=== PATIENT | female | born 1990 | race Caucasian/White ===

== ENCOUNTER → 2019-01-07 13:21 | Outpatient (CLI) | payer OTHER, SELFPAY ==
[2019-01-07 10:21] VITALS: BMI 36.0
[2019-01-09 14:44] LABS: HPV Reflexed? NOT INDICATED
== END ==
PROVIDERS: Referring Provider Nurse Practitioner Women's Health; Visit Provider Nurse Practitioner Women's Health
DX: Z12.4 Encounter for screening for malignant neoplasm of cervix (principal)
CPT/HCPCS: 87624; 88175; G0145

== ENCOUNTER → 2019-01-08 16:47 | Outpatient (CLI) | payer OTHER, SELFPAY ==
[2019-01-07 10:21] VITALS: BMI 36.0
[2019-01-08 19:20] LABS: Estradiol 46.8 pg/mL; Follicle Stimulating Hormone 6.8 mIU/mL; Prolactin 15.6 ng/mL; Thyroid Stim Hormone (TSH) 2.29 uIU/mL (0.358-3.74)
== END ==
PROVIDERS: Referring Provider Nurse Practitioner Women's Health; Visit Provider Nurse Practitioner Women's Health
DX: N97.0 Female infertility associated with anovulation (principal)
CPT/HCPCS: 36415; 82670; 83001; 84146; 84443

== ENCOUNTER → 2019-11-04 15:29 | Outpatient (CLI) | payer OTHER, SELFPAY ==
[2019-01-07 10:21] VITALS: BMI 36.0
== END ==
PROVIDERS: Referring Provider Obstetrics & Gynecology; Visit Provider Obstetrics & Gynecology
DX: O20.0 Threatened abortion (principal); Z3A.00 Weeks of gestation of pregnancy not specified
CPT/HCPCS: 36415; 84702

== ENCOUNTER → 2019-11-06 15:47 | Outpatient (CLI) | payer OTHER, SELFPAY ==
[2019-01-07 10:21] VITALS: BMI 36.0
== END ==
PROVIDERS: Referring Provider Obstetrics & Gynecology; Visit Provider Obstetrics & Gynecology
DX: O20.0 Threatened abortion (principal); Z3A.00 Weeks of gestation of pregnancy not specified
CPT/HCPCS: 36415; 84702

== ENCOUNTER → 2019-11-11 13:25 | Outpatient (CLI) | payer OTHER, SELFPAY ==
[2019-01-07 10:21] VITALS: BMI 36.0
[2019-11-08 13:29] VITALS: BMI 36.0
--- NOTE | 2019-11-11 13:25 | US_ITS ---
STUDY: FIRST TRIMESTER OBSTETRICAL ULTRASOUND REASON FOR EXAM: Female, 29 years old DATING LMP: September 05, 2019. TECHNIQUE: Transabdominal TECHNICAL QUALITY: Adequate. PRIOR ULTRASOUND: None. FINDINGS: There is visualization of a single gestational sac in a normal intrauterine position. The mean sac diameter (MSD) measures 4.28 cm, indicating an estimated gestational age (EGA) of 9 weeks, 6 days. The gestational sac shape is within normal limits. There is a visualized yolk sac. The yolk sac measures 5.3 mm. The placenta is non-visualized. There is visualization of a live embryo. The crown-rump length (CRL) measures 3.7 cm, indicating an estimated gestational age (EGA) of 10 weeks, 0 days. There is demonstrated cardiac activity with a heart rate of 160 bpm. The estimated gestation age (EGA) by LMP is 9 weeks, 4 days. The estimated date of delivery (CHUY) by LMP is June 11, 2020. The estimated gestation age (EGA) by US is 9 weeks, 6 days. The estimated date of delivery (CHUY) by US is June 09, 2020. The uterus measures 10.2 cm x 8.8 cm x 5.9 cm.. There is no demonstrated uterine fibroid. The cervix is closed. The right ovary is not visualized. The left ovary measures 4 cm x 3.3 cm x 2.3 cm. There is a 1.8 cm x 1.8 cm x 1.6 cm dominant follicle in the ovary. There is no visualized left adnexal mass or complex lesion. There is no fluid in the cul de sac. Findings suggestive of a right-sided maternal ureterocele. US/Init OB < 14Wks US IMPRESSION: Single live intrauterine gestation with a mean gestational age of 9 weeks and 6 days. Small left ovarian follicle. Findings suggestive of right-sided maternal ureterocele. Electronically Signed: Peterson Navarrete, at 14:56 EST , Service support ,
== END ==
PROVIDERS: Referring Provider Obstetrics & Gynecology; Visit Provider Obstetrics & Gynecology
DX: Z34.90 Encounter for supervision of normal pregnancy, unspecified, unspecified trimester (principal)
CPT/HCPCS: 76801

== ENCOUNTER → 2019-11-19 16:31 | Outpatient (CLI) | payer OTHER, SELFPAY ==
[2019-11-08 13:29] VITALS: BMI 36.0
--- NOTE | 2019-11-19 16:33 | US_ITS ---
STUDY: FIRST TRIMESTER OBSTETRICAL ULTRASOUND REASON FOR EXAM: Female, 29 years old. . Bleeding. LMP: 09/03/2019 TECHNIQUE: Transvaginal PRIOR ULTRASOUND: 11/11/2019 FINDINGS: There is visualization of a single gestational sac in a normal intrauterine position. There is a visualized yolk sac. There is visualization of a live embryo. The crown-rump length (CRL) measures 4.24 cm, indicating an estimated gestational age (EGA) of 11 weeks, 1 days. There is demonstrated cardiac activity with a heart rate of 182 bpm. There is a 1.3 x 1.1 cm subchorionic hemorrhage in the lower uterine segment. The uterus measures 10.1 x 8.9 x 6.6 cm. There is no demonstrated uterine fibroid. There are nabothian cysts noted in the cervix. The cervix is closed. The right ovary measures 3.1 x 2.4 x 1.5 cm. There is no right ovarian cyst. There is no visualized right adnexal mass or complex lesion. The left ovary measures 3.4 x 2.3 x 2.1 cm. There is a 1.7 x 1.6 cm cyst in the left ovary which likely represents the corpus luteum. There is no visualized left adnexal mass or complex lesion. There is no fluid in the cul de sac. US/Transvaginal w/Preg US IMPRESSION: Single live intrauterine gestation, as described above. 1.3 x 1.1 cm subchorionic hemorrhage in the lower uterine segment. Electronically Signed: Mariano Rodriguez, at 18:15 EST Tel , Service support ,
== END ==
PROVIDERS: Referring Provider Obstetrics & Gynecology; Visit Provider Obstetrics & Gynecology
DX: O20.9 Hemorrhage in early pregnancy, unspecified (principal); Z3A.00 Weeks of gestation of pregnancy not specified
CPT/HCPCS: 76817

== ENCOUNTER → 2019-11-20 17:08 | Outpatient (CLI) | payer OTHER, SELFPAY ==
[2019-11-20 15:45] VITALS: BMI 36.0
[2019-11-20 18:09] LABS: Amphetamine Urine VISTA NEGATIVE (<1000 ng/mL); Barbiturate Urine VISTA NEGATIVE (< 200 ng/mL); Benzodiazepine Urine VISTA NEGATIVE (< 200 ng/mL); Cocaine Urine VISTA NEGATIVE (< 300 ng/mL); Ecstacy Urine VISTA NEGATIVE (< 500 ng/mL); Methadone Urine VISTA NEGATIVE (< 300 ng/mL); PCP Urine VISTA NEGATIVE (< 25 ng/mL); THC Urine VISTA NEGATIVE (< 50 ng/mL); Vista UDS pH Range 6
[2019-11-20 19:10] LABS: Chlamydia Trachomatis by PCR Negative (Negative); Neisserai gonorrhoeae by PCR Negative (Negative); Probe Check PASS; Sample Adequacy Control PASS; Specimen Processing Control PASS
== END ==
PROVIDERS: Referring Provider Obstetrics & Gynecology; Visit Provider Obstetrics & Gynecology
DX: Z34.00 Encounter for supervision of normal first pregnancy, unspecified trimester (principal)
CPT/HCPCS: 80307; 87086; 87491; 87591

== ENCOUNTER → 2019-12-19 13:51 | Outpatient (CLI) | payer OTHER, SELFPAY ==
[2019-12-19 13:15] VITALS: BMI 36.0
[2019-12-19 14:46] LABS: Absolute Lymphocyte Count 1.45 X10^3/uL (0.83-4.51); Absolute Neutrophil Count 6.6 X10^3/uL (2.0-7.7); Basophil# 0.03 X10^3/uL; Basophil% 0.4 % (0-1); Eosinophil# 0.06 X10^3/uL; Eosinophils% 0.7 % (0-5); Hematocrit 37.4 % (37-47); Hemoglobin 12.5 g/dL (12.0-15.0); Lymphocyte # 1.45 X10^3/ul (4.0); Lymphocyte % 16.9 % (19-41); Mean Corp Hgb Conc 33.4 g/dL (32-36); Mean Corpuscular Hgb 29.1 pg (27.0-32.0); Mean Corpuscular Volume 87.2 fL (81-99); Mean Platelet Vol. 11.2 fl (6.2-12.0); Monocyte# 0.39 X10^3/uL; Monocyte% 4.6 % (0-10); NRBC Flagged by Analyzer 0 % (0-5); Neutrophil # 6.61 X10^3/uL (2.7-7.7); Neutrophil % 77.2 % (47-70); Platelet Count 222 K/mm3 (150-450); RBC Distribution Width CV 13.7 % (11.6-14.6); RBC Distribution Width SD 42.7 fl (35.1-43.9); Red Blood Count 4.29 M/mm3 (4.2-5.4); White Blood Count 8.6 K/mm3 (4.4-11.0)
[2019-12-20 11:01] LABS: HIV - WCH Non-Reactive (Nonreactive); Hepatitis B Surface Antigen Non-Reactive (Nonreactive); Hepatitis C Antibody Non-Reactive (Nonreactive)
[2019-12-26 01:04] LABS: Rapid Plasmin Reagin (RPR) NONREACTIVE (NONREACTIVE)
== END ==
PROVIDERS: Referring Provider Obstetrics & Gynecology; Visit Provider Obstetrics & Gynecology
DX: Z34.00 Encounter for supervision of normal first pregnancy, unspecified trimester (principal)
CPT/HCPCS: 36415; 85025; 86592; 86703; 86762; 86803; 86850; 86900; 86901; 87340

== ENCOUNTER → 2020-01-20 10:02 | Outpatient (CLI) | payer OTHER, SELFPAY ==
[2020-01-17 12:54] VITALS: BMI 36.0
[2020-01-20 11:11] LABS: Absolute Lymphocyte Count 1.32 X10^3/uL (0.83-4.51); Basophil# 0.02 X10^3/uL; Basophil% 0.3 % (0-1); Eosinophil# 0.06 X10^3/uL; Eosinophils% 0.8 % (0-5); Hematocrit 37.1 % (37-47); Hemoglobin 12.4 g/dL (12.0-15.0); Lymphocyte # 1.32 X10^3/ul (4.0); Lymphocyte % 16.9 % (19-41); Mean Corp Hgb Conc 33.4 g/dL (32-36); Mean Corpuscular Hgb 29.2 pg (27.0-32.0); Mean Corpuscular Volume 87.3 fL (81-99); Mean Platelet Vol. 11.5 fl (6.2-12.0); Monocyte# 0.32 X10^3/uL; Monocyte% 4.1 % (0-10); NRBC Flagged by Analyzer 0 % (0-5); Neutrophil # 6.04 X10^3/uL (2.7-7.7); Neutrophil % 77.5 % (47-70); Platelet Count 203 K/mm3 (150-450); RBC Distribution Width CV 13.2 % (11.6-14.6); RBC Distribution Width SD 41.2 fl (35.1-43.9); Red Blood Count 4.25 M/mm3 (4.2-5.4); White Blood Count 7.8 K/mm3 (4.4-11.0)
[2020-01-20 11:28] LABS: Glucose Challenge Gest 1H 50g 165 mg/dL (70-140)
== END ==
PROVIDERS: Referring Provider Obstetrics & Gynecology; Visit Provider Obstetrics & Gynecology
DX: O99.210 Obesity complicating pregnancy, unspecified trimester (principal); Z3A.00 Weeks of gestation of pregnancy not specified; N97.0 Female infertility associated with anovulation
CPT/HCPCS: 82950; 85025

== ENCOUNTER → 2020-01-22 09:41 | Outpatient (CLI) | payer OTHER, SELFPAY ==
[2020-01-17 12:54] VITALS: BMI 36.0
[2020-01-22 11:04] LABS: Glucose GTT-Gestation. Fasting 81 mg/dL (<105)
[2020-01-22 12:06] LABS: Glucose GTT-Gestational 1 Hr 200 mg/dL (<190)
[2020-01-22 13:14] LABS: Glucose GTT-Gestational 2 Hr 145 mg/dL (<165)
[2020-01-22 13:59] LABS: Glucose GTT-Gestational 3 Hr 134 L (<145)
== END ==
PROVIDERS: Referring Provider Obstetrics & Gynecology; Visit Provider Obstetrics & Gynecology
DX: O99.810 Abnormal glucose complicating pregnancy (principal); Z3A.00 Weeks of gestation of pregnancy not specified
CPT/HCPCS: 36415; 82951; 82952

== ENCOUNTER → 2020-03-13 12:21 | Outpatient (CLI) | payer OTHER, SELFPAY ==
[2020-02-14 09:28] VITALS: BMI 36.2
[2020-03-13 12:59] LABS: Absolute Lymphocyte Count 1.43 X10^3/uL (0.83-4.51); Absolute Neutrophil Count 5.8 X10^3/uL (2.0-7.7); Basophil# 0.02 X10^3/uL; Basophil% 0.3 % (0-1); Eosinophil# 0.06 X10^3/uL; Eosinophils% 0.8 % (0-5); Hematocrit 33.6 % (37-47); Hemoglobin 11.2 g/dL (12.0-15.0); Lymphocyte # 1.43 X10^3/ul (4.0); Lymphocyte % 18.6 % (19-41); Mean Corp Hgb Conc 33.3 g/dL (32-36); Mean Corpuscular Hgb 29.6 pg (27.0-32.0); Mean Corpuscular Volume 88.9 fL (81-99); Monocyte# 0.37 X10^3/uL; Monocyte% 4.8 % (0-10); NRBC Flagged by Analyzer 0 % (0-5); Neutrophil # 5.75 X10^3/uL (2.7-7.7); Platelet Count 166 K/mm3 (150-450); RBC Distribution Width CV 13.8 % (11.6-14.6); RBC Distribution Width SD 44.3 fl (35.1-43.9); Red Blood Count 3.78 M/mm3 (4.2-5.4); White Blood Count 7.7 K/mm3 (4.4-11.0)
[2020-03-13 13:56] LABS: Glucose Challenge Gest 1H 50g 172 mg/dL (70-140)
== END ==
PROVIDERS: Referring Provider Nurse Practitioner Women's Health; Visit Provider Nurse Practitioner Women's Health
DX: Z34.90 Encounter for supervision of normal pregnancy, unspecified, unspecified trimester (principal)
CPT/HCPCS: 36415; 82950; 85025

== ENCOUNTER → 2020-03-20 06:39 | Outpatient (CLI) | payer OTHER, SELFPAY ==
[2020-03-13 13:09] VITALS: BMI 36.2
[2020-03-20 07:40] LABS: Glucose GTT-Gestation. Fasting 85 mg/dL (<105)
[2020-03-20 09:03] LABS: Glucose GTT-Gestational 1 Hr 200 mg/dL (<190)
[2020-03-20 11:06] LABS: Glucose GTT-Gestational 2 Hr 146 mg/dL (<165)
[2020-03-20 11:09] LABS: Glucose GTT-Gestational 3 Hr 125 L (<145)
== END ==
PROVIDERS: Referring Provider Nurse Practitioner Women's Health; Visit Provider Nurse Practitioner Women's Health
DX: O99.810 Abnormal glucose complicating pregnancy (principal); Z3A.00 Weeks of gestation of pregnancy not specified
CPT/HCPCS: 36415; 82951; 82952

== ENCOUNTER → 2020-05-14 16:48 | Outpatient (CLI) | payer OTHER, SELFPAY ==
[2020-05-14 14:48] VITALS: BMI 36.2
== END ==
PROVIDERS: Referring Provider Obstetrics & Gynecology; Visit Provider Obstetrics & Gynecology
DX: Z3A.36 36 weeks gestation of pregnancy (principal)
CPT/HCPCS: 87081

== ENCOUNTER → 2020-06-10 17:58 | Outpatient (CLI) | payer OTHER, SELFPAY ==
[2020-06-10 08:09] VITALS: BMI 36.2
== END ==
PROVIDERS: Referring Provider Obstetrics & Gynecology; Visit Provider Obstetrics & Gynecology
DX: Z11.59 Encounter for screening for other viral diseases (principal)
CPT/HCPCS: 87635; 94799; U0003

== ENCOUNTER 2020-06-18 18:44 | Inpatient (IN) | payer OTHER, SELFPAY ==
[2020-06-05 13:29] VITALS: BMI 36.2
[2020-06-10 08:09] VITALS: BMI 36.2
[2020-06-18 19:10] VITALS: BMI 37.4
[2020-06-18 19:33] VITALS: BP 126/89; PULSE 105; TEMP 36.9
[2020-06-18] MEDS: Lactated Ringers 1,000 ML 50 ML IV (19:55)
[2020-06-18 20:18] LABS: Absolute Lymphocyte Count 2.19 X10^3/uL (0.83-4.51); Absolute Neutrophil Count 6.6 X10^3/uL (2.0-7.7); Basophil# 0.03 X10^3/uL; Basophil% 0.3 % (0-1); Eosinophil# 0.08 X10^3/uL; Eosinophils% 0.8 % (0-5); Hematocrit 34.2 % (37-47); Hemoglobin 11.1 g/dL (12.0-15.0); Lymphocyte # 2.19 X10^3/ul (4.0); Lymphocyte % 23.1 % (19-41); Mean Corp Hgb Conc 32.5 g/dL (32-36); Mean Corpuscular Hgb 28.9 pg (27.0-32.0); Mean Corpuscular Volume 89.1 fL (81-99); Mean Platelet Vol. 13.6 fl (6.2-12.0); Monocyte# 0.56 X10^3/uL; Monocyte% 5.9 % (0-10); NRBC Flagged by Analyzer 0 % (0-5); Neutrophil # 6.58 X10^3/uL (2.7-7.7); Neutrophil % 69.6 % (47-70); Platelet Count 152 K/mm3 (150-450); RBC Distribution Width CV 15.2 % (11.6-14.6); RBC Distribution Width SD 48.5 fl (35.1-43.9); Red Blood Count 3.84 M/mm3 (4.2-5.4); White Blood Count 9.5 K/mm3 (4.4-11.0)
[2020-06-18] MEDS: miSOPROStol 25 MCG TABLET PO (20:32)
[2020-06-18] MEDS: 0.9% Normal Saline Single 100 ML IV.SOLN. IY (20:53)
[2020-06-18 21:20] VITALS: BP 130/82; PULSE 66; TEMP 36.5
[2020-06-18 23:30] VITALS: BP 129/85; PULSE 77; TEMP 36.8
[2020-06-19] VITALS (75 sets, daily range): BP systolic 86–134; BP diastolic 52–82; PULSE 57–95; RESP 16; TEMP 36.1–37.7; O2SAT 74–100
[2020-06-19] MEDS: Lactated Ringers 500 ML 999 ML IV ×2 (00:07→06:53)
[2020-06-19] MEDS: Ondansetron 4 MG/2 ML Vial IV (00:12)
[2020-06-19] MEDS: fentaNYL-bupivacaine (epidural) 100 ML BAG EPIDURAL ×3 (01:25→11:05)
[2020-06-19] MEDS: Oxytocin 30 units/NS 500 ml 30 UNITS/500 ML IV.SOLN IV (03:25)
[2020-06-19] MEDS: Lactated Ringers 1,000 ML 200 ML IV ×2 (05:42→11:14)
--- NOTE | 2020-06-19 07:02 | PCM.HPOB.BLA ---
- Problem List (1) Abnormal glucose affecting Status: Acute Comment: 1 value elevated on 3hr. Recommend low carb/sugar diet for the remainder of the . Normal 3gtt at 28 weeks (2) Genital herpes Status: Acute Comment: No outbreak since 2017; Acyclovir starting at 36 weeks (3) Obesity affecting Status: Acute Qualifiers: Comment: nl 1 tm glucola, encouraged healthy weight gain (4) Status: Acute Qualifiers: Comment: declined ntd, genetic and carrier testing. nl anatomy. (5) Supervision of high-risk Status: Acute Comment: PRR CHUY 06/11/2020 nilda Parker EMELY Araujo History and Physical Date of Admission: 06/18/20 Intake Vital Signs 06/10/20 BMI 36.2 06/10/20 Height 5 ft 5 in 06/10/20 Weight: 222 lb 06/10/20 BMI 36.9 06/10/20 BP 112/76 Intake Visit Reasons: 40 WK OB Chief Complaint: est ob Embedded Nurse Required: No Is patient in pain?: No Allergies No Known Allergies Allergy (Verified 06/10/20 08:09) Medications multivitamin no.47-iron fum 27 mg-folate no.1 1 mg-dha 300 mg capsule 1 cap PO DAILY #30 cap 11/08/19 Rx Confirmed 06/10/20 acyclovir 400 mg tablet 400 mg PO BID #60 tab 05/14/20 Rx Confirmed 06/10/20 Last Menstral Period: 09/05/19 Zika: Zika virus screening: Negative : No PFSH PFSH Medical History Anxiety (Acute) Family History Grandfather Cancer skin Social History (Updated 06/10/20 @ 08:[address] 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 OB Visit CHUY Calculator Estimated Delivery Date Method Current WG Current Estimate 06/11/20 LMP (Uncertain) 39w 6d Expected Delivery Route/Plan by 41 weeks Labor Preferences- declined CB and BF class labor support person: Van pain management options preferred: epidural cut cord/dad catch: maybe : yes PP control planned: undecided discussed possible routes of delivery and associated risks: discussed possible delivery modalities and possible indications for each including R/B/A of , VAVD, and CS. questions answered. special requests: none Specific Issue/Plans flu vaccine: declined tdap vaccine: declined rhogam: na LARC form signed: declined movement and labor precautions reviewed. Problem list reviewed and updated with the most current plan of care details and appropriate orders placed. Relevant counseling for the gestational age provided. Continue routine care and follow up unless otherwise noted in visit notes/problem list details Initial Weight: 216 lb Date EGA Weight BP Urine Prot Glucose FHR FuHt Pres Dilation Effaced St Visit Note 11/20/19 10w 6d 217 lb (+16 oz) 160 12/19/19 15w 0d 216 lb (+0 oz) 120/88 Negative Negative 150 SM- had some spotting no cramping. 01/17/20 19w 1d 217 lb (+16 oz) 108/58 Negative Negative 150 SM- no vb cramping 02/14/20 23w 1d 218 lb (+2 lb) 110/76 Negative Negative 148 23 MH-No Vb, LOF. Good FM. States US 01/19 and low lying placenta. No report available-called for report. Report any bleeding 03/13/20 27w 1d 216 lb (+0 oz) 120/62 Negative Negative 140 27 SM- no vb lof good fm n oregular ctx. glucola today 04/17/20 32w 1d 217 lb (+16 oz) 110/64 Negative Negative 140 32 Cephalic SM- no vb lof good fm no regular ctx. larc signed 04/30/20 34w 0d 217 lb (+16 oz) 104/68 Negative Negative 130 35 Cephalic SM- no vb lof good fm n oreular ctx 05/14/20 36w 0d 215 lb (-16 oz) 134/82 Negative Negative 130 36 Cephalic SM- no vb lof good fm no regular ctx 05/22/20 37w 1d 220 lb 8 oz (+4 lb 8 oz) 120/82 Trace Negative 130 37 Cephalic SM- no vb lof good fm- decreased and different but good movements today 05/29/20 38w 1d 220 lb 4 oz (+4 lb 4 oz) 110/64 Negative Negative 130 38 Cephalic SM- no vb lof good fm no regular ctx 06/03/20 38w 6d 222 lb (+6 lb) 140 NST only reactive 06/05/20 39w 1d 221 lb 8 oz (+5 lb 8 oz) 120/70 Trace 1000 g/dL 140 39 Cephalic 1.5 SM- no vb lof good fm no regular ctx 06/10/20 39w 6d 222 lb (+6 lb) 112/76 Negative Negative 140 39 Cephalic 1.5 50 -3 SM- no vb lof good fm no regular ctx ACOG First Trimester First Trimester: Second Trimester Second Trimester: Signs and Symptoms of Labor, Selecting a care provider, Reproductive Life Planning, Care Planning, Tobacco Cessation, Depression/Anxiety and Intimate Partner Violence Third Trimester Third Trimester: Pain Management Plans, Labor support person(s), Immediate Larc, Movement Monitoring and Feeding Yes ; discussed Trial of Labor after Counseling or discussed Circumcision preference Diagnostics Diagnostics Diagnostics Gest Glucose Tolerance MG/DL 03/20/20 Glucose 1 Hr 50 gm 172 mg/dL (70-140) H 03/13/20 Hgb 11.2 g/dL (12.0-15.0) L 03/13/20 Hct 33.6 % (37-47) L 03/13/20 Details: HIV: Urine Culture: Sequential Screen: NIPT Screen: ROS Const Reports system reviewed and no additional complaints, except as docu Card Reports system reviewed and no additional complaints, except as docu Resp Reports system reviewed and no additional complaints, except as docu GI Reports system reviewed and no additional complaints, except as docu, Reports nausea Reports system reviewed and no additional complaints, except as docu Musc Reports system reviewed and no additional complaints, except as docu Exam Const General: cooperative, healthy appearing, comfortable, anxious [facility] Head: normal to inspection Nose: external nose normal Face and sinus: normal facial exam Neck Neck: normal visual inspection, full ROM, no lymphadenopathy Thyroid: thyroid normal Chest Chest palpation & inspection: normal inspection of the chest Resp Effort & Inspection: normal respiratory effort GI Inspection: normal to inspection Palpation: soft, other (gravid uterus) Other: vertex and appropriate size for gestational age Other: Cervical Exam: Extrem General: pedal edema Results POC Urinalysis 2 Dip (Clinic) Office Urine Glucose Negative Last Edit by Michelle Chong on 06/10/20 08:13 Office Urine Protein Negative Last Edit by Michelle Chong on 06/10/20 08:13 Assessment & Plan Problems 1. Genital herpes A60.00 No outbreak since 2017; Acyclovir starting at 36 weeks 2. Z34.90 declined ntd, genetic and carrier testing. nl anatomy. 3. Obesity affecting O99.210 nl 1 tm glucola, encouraged healthy weight gain 4. Abnormal glucose affecting O99.810 1 value elevated on 3hr. Recommend low carb/sugar diet for the remainder of the . Normal 3gtt at 28 weeks 5. Supervision of high-risk O09.90 PRR CHUY 06/11/2020 nilda Araujo Orders Orders: POC Urinalysis 2 Dip (Clinic) Today Coding Level of Care Code OB Routine Diagnoses Genital herpes A60.00 Z34.90 Obesity affecting O99.210 Abnormal glucose affecting O99.810 Supervision of high-risk O09.90 Patient presents IOL, plan management for with Wells bulb and Cytotec followed by Pitocin and AROM. Pain management: Plans epidural. GBS negative. Management of any complications: None I have reviewed the [facility] and made any clinically relevant updates.
--- NOTE | 2020-06-19 10:09 | OP.PCM_ITS ---
Problem List (1) Abnormal glucose affecting Status: Acute Comment: 1 value elevated on 3hr. Recommend low carb/sugar diet for the remainder of the . Normal 3gtt at 28 weeks (2) Genital herpes Status: Acute Comment: No outbreak since 2017; Acyclovir starting at 36 weeks (3) Obesity affecting Status: Acute Qualifiers: Comment: nl 1 tm glucola, encouraged healthy weight gain (4) Status: Acute Qualifiers: Comment: declined ntd, genetic and carrier testing. nl anatomy. (5) Supervision of high-risk Status: Acute Comment: PRR CHUY 06/11/2020 nilda Parker BF- Van Vaginal Delivery Maternal Presentation: Medically Indicated Induction iol postdates Method of Induction: Pitocin, Wells Bulb, Cytotec Medical Reason for Induction: Post term Amniotic Membrane Rupture Type: Artificial Amniotic Fluid Description: Clear Final CHUY: 06/11/20 Gestational age: 41 Weeks and 1 Days Date of Procedure: 06/19/20 Pre-Operative Diagnosis: iol postdates Post-Operative Diagnosis: same Surgery/ Procedure Performed: Spontaneous Vaginal Delivery Type of Anesthesia: Epidural, Local with 1% lidocaine Description of Procedure: 29-year-old G1, P0 presented at 41 weeks for induction of labor secondary to postdates. Patient underwent Wells bulb and Cytotec induction of labor followed by Pitocin and AROM. Patient underwent epidural anesthesia. Proceeded to complete dilation and began pushing. After 2 hours position was evaluated and noted to be ROP and with manipulation of the head with a contraction by Dr. martin there was gentle rotation to EMMY presentation. This was after the patient's epidural was redosed and found to be adequate and patient labored down and then began pushing again. After a total of 4 hours of intermittent pushing due to maternal exhaustion the decision for operative vaginal delivery was disc ussed. At first forceps was offered versus proceeding with a but due to in availability of instruments the decision was made to offer a vacuum delivery. Patient and had been consented previously in the office regarding the risks benefits and alternatives and patient agreed to proceed with an operative vaginal delivery trial prior to proceeding with immediate due to adequacy of her pelvis. Kiwi vacuum was applied and gentle downward traction was applied with 3 contractions with 3 pulls, 1 pop-off, total duration of application less than 5 minutes. Pressure applied to the green zone no more than 800 mmHg pressure. After descent of the vertex three quarters the head was delivered and then suction released it was delivered in the EMMY presentation and downward traction was applied on the head to aid in delivery of the shoulder of which the body positioning was noted to be rotated around therefore the noted nuchal cord was reduced over the infant's head easily and then downward traction was again then applied and the left shoulder which was anterior was delivered without complication. Maternal pushing was then again attempted to deliver the rest of the body and there was a total of 1 minute and 5 seconds from delivery of the head to entire delivery of the with a mild shoulder/body dystocia due to positioning. The rest the was delivered and placed on the maternal abdomen. Cord was immediately cut clamped and the infant passed off to cash application representative for evaluation. See special care nursery note for information. A partial third-degree laceration was noted with disruption of the capsule and part of the anal sphincter. This was reapproximated with 2-0 PDS to restore integrity of the anal sphincter capsule and then the perineum was closed and reapproximated with 3-0 Vicryl Rapide in the usual fashion. EBL was 400 cc. It was discussed with the patient and her that there was a mild shoulder and body dystocia but this seem to be due to positioning and rotation as well as and large size. True knot in the cord was noted. It was discussed with the patient that it is reasonable to proceed with a vaginal delivery with her next delivery but would recommend a smaller estimated weight. Presentation: EMMY Placental Delivery Description: Spontaneous Placenta Disposition: [facility] Cord Vessel Description: 3 Vessels Cord Entanglement: Around neck x 1, loose, True Knot(s) Estimated Blood Loss: 400 Infant A gender: Male Episiotomy Description: None Laceration: Perineal Extension/lac, 3rd degree - partial Medications given after delivery: IV Pitocin Complications: - - suspected subgaleal hemorrhage see SCN note for additional details. Multi Select Codes - Urinary/Genital Urinary/Genital CPT Codes: 32044 Vaginal Delivery [facility]
--- NOTE | 2020-06-19 10:15 | DCINST_ITS ---
Discharge Diet: No Restrictions Discharge Activity: Return to Normal Activity, May not drive while taking narcotic pain medications., May Shower May resume sexual activity in: 4-6 weeks Call your doctor if your incision/area has: Continuous Slow Oozing, Sudden Increased Bleeding, Increased Pain/ Swelling, Increased Redness, Foul Smelling Discharge Additional Instructions: If you experience any of the following, contact your healthcare provider. * Bleeding that soaks a pad every hour for 2 hours * Fever 100.4 or higher * Unrelieved incision or abdominal pain * Swelling, redness, discharge or bleeding from your incision or episiotomy site * Your incision begins to separate * Problems urinating (including inability to urinate or burning while urinating). * Visual changes * Severe headache * Flu-like symptoms * Pain or redness in one of both of your breasts * Pain, warmth, tenderness or swelling in your legs, especially the calf area * Frequent nausea and vomiting * Symptoms of depression or anxiety If you experience any of the following, call 911 or go to the nearest Emergency Room. * Chest pain * Problems breathing * Seizure activity * Partial or complete paralysis of a body part, slurred speech, weakness or drooping of the face, or a sudden inability to walk or hold your balance Allergies/Adverse Reactions: Allergies No Known Allergies Allergy (Verified 06/10/20 08:09) Medications to take at Discharge Acyclovir 400 mg PO BID 06/18/20 47/Iron/Folate 1/Dha [PNV-DHA] 1 cap PO DAILY 06/18/20 Please Follow Up With: Kaylee Torres MD - [phone] When: Call to make an appointment with your doctor in 6 weeks. If you had elevated Blood pressure or 4th degree laceration you will need to be seen in 2 weeks. Primary Care Physician: Care Physician,No Primary [Primary Care Provider] - Test Results: Test results from this visit will be discussed in further detail at your follow- up appointment, if applicable.
--- NOTE | 2020-06-19 10:15 | PCM.DCVAG ---
Discharge Diet: No Restrictions Discharge Activity: Return to Normal Activity, May not drive while taking narcotic pain medications., May Shower May resume sexual activity in: 4-6 weeks Call your doctor if your incision/area has: Continuous Slow Oozing, Sudden Increased Bleeding, Increased Pain/ Swelling, Increased Redness, Foul Smelling Discharge Additional Instructions: If you experience any of the following, contact your healthcare provider. Bleeding that soaks a pad every hour for 2 hours Fever 100.4 or higher Unrelieved incision or abdominal pain Swelling, redness, discharge or bleeding from your incision or episiotomy site Your incision begins to separate Problems urinating (including inability to urinate or burning while urinating). Visual changes Severe headache Flu-like symptoms Pain or redness in one of both of your breasts Pain, warmth, tenderness or swelling in your legs, especially the calf area Frequent nausea and vomiting Symptoms of depression or anxiety If you experience any of the following, call 911 or go to the nearest Emergency Room. Chest pain Problems breathing Seizure activity Partial or complete paralysis of a body part, slurred speech, weakness or drooping of the face, or a sudden inability to walk or hold your balance Allergies/Adverse Reactions: Allergies No Known Allergies Allergy (Verified 06/10/20 08:09) Medications to take at Discharge Acyclovir 400 mg PO BID 06/18/20 47/Iron/Folate 1/Dha [PNV-DHA] 1 cap PO DAILY 06/18/20 Please Follow Up With: Kaylee Torres MD - [phone] When: Call to make an appointment with your doctor in 6 weeks. If you had elevated Blood pressure or 4th degree laceration you will need to be seen in 2 weeks. Primary Care Physician: Care Physician,No Primary [Primary Care Provider] - Test Results: Test results from this visit will be discussed in further detail at your follow-up appointment, if applicable.
[2020-06-19] MEDS: Oxytocin 30 units/NS 500 ml 30 UNITS/500 ML IV.SOLN 334 UNITS IV (13:16)
[2020-06-19] MEDS: Naproxen 250 MG Tablet 500 MG PO (16:33)
[2020-06-19] MEDS: Dibucaine 30 GM Tube 1 APPLIC TOPICAL (16:35)
[2020-06-19] MEDS: Senna/Docusate Sodium 1 Tablet PO (16:35)
--- NOTE | 2020-06-19 22:08 | NURSING ---
Pt took shower to try to relax and attempt to pee, pt stated she felt like she peed in the shower and felt some relief from peeing, on assement of pt uterus, uterus was slightly off to the left, pt is currrently pumping and encouraged to try to pee again once she is done pumping
[2020-06-20] MEDS: Naproxen 250 MG Tablet 500 MG PO (02:08)
[2020-06-20 02:40] VITALS: BP 115/68; PULSE 73
[2020-06-20 02:45] VITALS: BP 115/68; PULSE 73; RESP 16; TEMP 36.6
[2020-06-20 07:39] VITALS: O2SAT 97
[2020-06-20 07:40] VITALS: BP 111/80; PULSE 77
[2020-06-20] MEDS: Acetaminophen 500 MG Tablet 1000 MG PO (08:02)
[2020-06-20] MEDS: Senna/Docusate Sodium 1 Tablet PO (08:03)
[2020-06-20 08:05] VITALS: BP 111/80; PULSE 77; RESP 14; TEMP 36.6; O2SAT 97
== END 2020-06-20 11:10 | disposition home or self-care (01) | DRG 768 ==
PROVIDERS: Admitting Provider Obstetrics & Gynecology; Visit Provider Obstetrics & Gynecology
DX: O75.81 Maternal exhaustion complicating labor and delivery (principal); Z37.0 Single live birth; O72.1 Other immediate postpartum hemorrhage; O70.20 Third degree perineal laceration during delivery, unspecified; O98.32 Other infections with a predominantly sexual mode of transmission complicating childbirth; O99.814 Abnormal glucose complicating childbirth; O99.214 Obesity complicating childbirth; A60.00 Herpesviral infection of urogenital system, unspecified; O48.0 Post-term pregnancy; E66.9 Obesity, unspecified; O69.2XX0 Labor and delivery complicated by other cord entanglement, with compression, not applicable or unspecified; O69.81X0 Labor and delivery complicated by cord around neck, without compression, not applicable or unspecified; Z3A.41 41 weeks gestation of pregnancy; Z28.21 Immunization not carried out because of patient refusal
CPT/HCPCS: 59025; 59050; 85025; 86850; 86900; 86901; 99218; J7120; G0378; J2405

== ENCOUNTER → 2022-08-31 | Outpatient (CLI) | payer OTHER, SELFPAY ==
[2022-09-09 22:06] LABS: HPV Genotype 16, Aptima Negative (Negative)
[2022-09-11 10:22] LABS: HPV APTIMA, High Risk Positive (Negative); HPV Genotype 18,45 Aptima Negative (Negative)
== END | disposition home or self-care (01) ==
LOC: LABSPEC 15:21
PROVIDERS: Visit Provider Registered Nurse
DX: Z12.4 Encounter for screening for malignant neoplasm of cervix (principal)
CPT/HCPCS: 87624; 88175; G0145

== ENCOUNTER 2022-09-26 15:25 | Outpatient (CLI) | payer OTHER, SELFPAY ==
[2022-09-26 16:51] LABS: Absolute Lymphocyte Count 2.05 X10^3/uL (0.83-4.51); Absolute Neutrophil Count 6.1 X10^3/uL (2.0-7.7); Basophil# 0.04 X10^3/uL; Basophil% 0.5 % (0-1); Eosinophil# 0.14 X10^3/uL; Eosinophils% 1.6 % (0-5); Hematocrit 41.3 % (37-47); Hemoglobin 14.1 g/dL (12.0-15.0); Lymphocyte # 2.05 X10^3/ul (0.83-4.51); Lymphocyte % 23.4 % (19-41); Mean Corp Hgb Conc 34.1 g/dL (32-36); Mean Corpuscular Hgb 30.5 pg (27.0-32.0); Mean Corpuscular Volume 89.2 fL (81-99); Mean Platelet Vol. 11.4 fl (6.2-12.0); Monocyte# 0.42 X10^3/uL; Monocyte% 4.8 % (0-10); NRBC Flagged by Analyzer 0 % (0-5); Neutrophil # 6.08 X10^3/uL (2.7-7.7); Neutrophil % 69.4 % (47-70); Platelet Count 263 K/mm3 (150-450); RBC Distribution Width CV 12.8 % (11.6-14.6); RBC Distribution Width SD 41.9 fl (35.1-43.9); Red Blood Count 4.63 M/mm3 (4.2-5.4); White Blood Count 8.8 K/mm3 (4.4-11.0)
[2022-09-26 16:59] LABS: Vitamin D,25 Hydroxy 22.7 ng/mL
[2022-09-26 17:09] LABS: BUN 9 mg/dL (7-18); Creatinine, Serum 0.62 mg/dL (0.55-1.02); Glucose 127 mg/dL (74-106)
[2022-09-26 17:10] LABS: ALB/GLOB Ratio 0.9 RATIO (0.9-2.4); AST(SGOT) 14 U/L (15-37); Alanine Aminotransfer ALT/SGPT 49 U/L (13-56); Albumin, Serum 3.6 g/dL (3.2-5.0); Alkaline Phosphatase 61 U/L (45-117); Anion Gap 7 (5-15); BUN/Creat Ratio 14.5 RATIO (10-20); Chloride 111 mmol/L (98-107); EST Glomerular Filtration Rate 118 mL/min (>60); Est Glom Filt Rate - Afr Amer 143 mL/min (>60); Globulin 4.1 g/dL (2.2-4.2); Potassium 3.5 mmol/L (3.5-5.1); Protein, Total 7.7 g/dL (6.4-8.2); Sodium Level 140 mmol/L (136-145); Thyroid Stim Hormone (TSH) 1.88 uIU/mL (0.358-3.74)
== END 2022-09-26 23:59 | disposition home or self-care (01) ==
LOC: BIMLAB 15:29
PROVIDERS: PCP Internal Medicine; Referring Provider Internal Medicine; Visit Provider Internal Medicine
DX: R53.83 Other fatigue (principal); F32.1 Major depressive disorder, single episode, moderate
CPT/HCPCS: 36415; 80053; 82306; 84443; 85025

== ENCOUNTER → 2022-10-25 | Outpatient (CLI) | payer OTHER, SELFPAY | END | disposition home or self-care (01) | LOC: SL 20:03 | PROVIDERS: PCP Internal Medicine; Visit Provider Internal Medicine | DX: R53.83 Other fatigue (principal); R29.818 Other symptoms and signs involving the nervous system; G47.10 Hypersomnia, unspecified | CPT/HCPCS: 95810 ==

== ENCOUNTER 2022-12-30 17:49 | Emergency (ER) | payer OTHER, SELFPAY ==
[2022-12-30 17:50] VITALS: BP 134/89; PULSE 77; RESP 16; TEMP 36.5; O2SAT 94; BMI 38.8
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
[2022-12-30] MEDS: Morphine 4 MG/ML Syringe IV ×2 (19:23→22:04)
--- NOTE | 2022-12-30 19:29 | CT_ITS ---
INDICATION: radial neck fracture, numbness and tingling in arm EXAMINATION: CT BONE - CT Upper Extremity W/O Contrast Injection TECHNIQUE: Helically acquired images were obtained of the right humerus. 2-D reformats were performed by the technologist. A radiation dose optimization technique was used for this scan. IV Contrast dosage and agent: None. COMPARISON: None. FINDINGS: SOFT TISSUES: Contusions of the upper arm and right breast. No significant hematoma. No radiopaque foreign body. BONES/JOINTS: Comminuted, minimally displaced fracture involving the scapular blade, spine, and supraspinous blade. Comminuted fracture of the humeral head, neck, greater tuberosity, and lesser tuberosity, with mild impaction of the neck. Preservation of the joint space. CT/Extremity Upper without Contra IMPRESSION: Fractures of the humerus and scapula detailed above. No significant hematoma. Electronically Signed: Nacho Godinez MD at 20:19 EST ,
[2022-12-30 22:16] VITALS: BP 138/79; PULSE 74; RESP 18; O2SAT 100
== END 2022-12-30 22:18 | disposition short-term general hospital (02) ==
PROVIDERS: Emergency Provider Emergency Medicine; PCP Internal Medicine; Visit Provider Emergency Medicine
DX: S42.101A Fracture of unspecified part of scapula, right shoulder, initial encounter for closed fracture (principal); S42.291A Other displaced fracture of upper end of right humerus, initial encounter for closed fracture; S09.90XA Unspecified injury of head, initial encounter; M54.2 Cervicalgia; V48.5XXA Car driver injured in noncollision transport accident in traffic accident, initial encounter
CPT/HCPCS: 70450; 72125; 73030; 73200; 96374; 96376; 99285; A4216

== ENCOUNTER → 2023-04-05 | Outpatient (CLI) | payer OTHER, SELFPAY ==
[2023-04-05 17:08] LABS: Absolute Lymphocyte Count 1.73 X10^3/uL (0.83-4.51); Basophil# 0.05 X10^3/uL; Basophil% 0.7 % (0-1); Eosinophils% 2.7 % (0-5); Hematocrit 42.3 % (37-47); Hemoglobin 13.3 g/dL (12.0-15.0); Lymphocyte # 1.73 X10^3/ul (0.83-4.51); Lymphocyte % 23.7 % (19-41); Mean Corp Hgb Conc 31.4 g/dL (32-36); Mean Platelet Vol. 11.3 fl (6.2-12.0); Monocyte# 0.35 X10^3/uL; Monocyte% 4.8 % (0-10); NRBC Flagged by Analyzer 0 % (0-5); Neutrophil # 4.95 X10^3/uL (2.7-7.7); Neutrophil % 67.8 % (47-70); Platelet Count 262 K/mm3 (150-450); RBC Distribution Width CV 14.4 % (11.6-14.6); RBC Distribution Width SD 44.9 fl (35.1-43.9); Red Blood Count 4.92 M/mm3 (4.2-5.4); White Blood Count 7.3 K/mm3 (4.4-11.0)
[2023-04-05 17:21] LABS: Erythrocyte Sedimentation Rate 37 mm/hr (0-30)
[2023-04-05 17:24] LABS: Vitamin D,25 Hydroxy 35.2 ng/mL
[2023-04-05 18:11] LABS: ALB/GLOB Ratio 0.9 RATIO (0.9-2.4); AST(SGOT) 17 U/L (15-37); Alanine Aminotransfer ALT/SGPT 35 U/L (13-56); Albumin, Serum 3.7 g/dL (3.2-5.0); Alkaline Phosphatase 67 U/L (45-117); Anion Gap 3 (5-15); BUN 11 mg/dL (7-18); BUN/Creat Ratio 17.7 RATIO (10-20); CRP < 2.90 mg/L (0.0-3.0); Calcium,Total 9.2 mg/dL (8.5-10.1); Chloride 110 mmol/L (98-107); Creatinine, Serum 0.62 mg/dL (0.55-1.02); EST Glomerular Filtration Rate 118 mL/min (>60); Est Glom Filt Rate - Afr Amer 143 mL/min (>60); Globulin 4.2 g/dL (2.2-4.2); Glucose 88 mg/dL (74-106); Potassium 3.6 mmol/L (3.5-5.1); Protein, Total 7.9 g/dL (6.4-8.2); Rheumatoid Factor < 10.0 IU/mL (<15); Sodium Level 139 mmol/L (136-145)
[2023-04-07 12:08] LABS: CCP IgG Antibodies 5 units (0-19)
[2023-04-10 08:07] LABS: Anti-Nuclear Antibody Test Negative (.)
== END | disposition home or self-care (01) ==
LOC: BIMLAB 15:06
PROVIDERS: PCP Internal Medicine; Visit Provider Internal Medicine
DX: R59.0 Localized enlarged lymph nodes (principal); R79.89 Other specified abnormal findings of blood chemistry
CPT/HCPCS: 36415; 80053; 82306; 85025; 85652; 86038; 86140; 86200; 86431

== ENCOUNTER → 2023-04-21 | Outpatient (CLI) | payer OTHER, SELFPAY ==
--- NOTE | 2023-04-21 08:55 | US_ITS ---
EXAM: Diagnostic bilateral breast mammogram and diagnostic unilateral right breast ultrasound REASON FOR EXAM: Female, 32 years old. Enlarged palpable right axillary lymph node which was also found on recent MRI after fractured right humerus. PERTINENT HISTORY: No reported personal or family history of breast cancer. TECHNIQUE: Digital bilateral breast kathe (3D mammographic acquisition) in the CC and MLO projections. 2-D mediolateral oblique (MLO) and craniocaudad (CC) views of the bilateral breasts were obtained. CAD: Full Field Digital Mammography with Computer Added Detection was performed. Real-time lloyd scale and color sonographic images were obtained of the right axilla in the clinical area of palpable finding. COMPARISON: None. FINDINGS: Mammogram findings: Breast Composition: Portions of the breasts are heterogeneously dense, which may obscure small masses. There are no dominant masses or suspicious calcifications. Small benign-appearing bilateral axillary lymph nodes. No other significant findings. Ultrasound was obtained of the right axilla in the clinical area of concern was obtained. Ultrasound findings: The right axilla was assessed in the clinical area of concern. There is a 1.6 x 1.2 x 0.7 cm benign-appearing lymph node with normal echogenic hilum corresponding to the palpable finding. No suspicious masses or abnormal fluid collections. US/Breast Limited Unilateral IMPRESSION: No findings to suggest malignancy on mammogram. Annual screening mammogram recommended if clinically warranted. Benign-appearing lymph node in the right axilla corresponding to the palpable finding with no suspicious masses or abnormal fluid collections on ultrasound examination. ASSESSMENT CATEGORY: BIRADS Category 2: Benign. A letter regarding these results will be sent to the patient by the facility within 30 days. Recommendation: Return to annual screening mammogram if clinically warranted. If clinical concerns for enlarging mass or nipple discharge on physical exam, repeat diagnostic ultrasound and mammogram is recommended. Approximately 10% of breast cancers are not detected by mammography. A normal mammogram should not delay biopsy of a clinically suspicious abnormality. Electronically Signed: Ortega Marmolejo DO at 13:46 EDT ,
== END | disposition home or self-care (01) ==
LOC: OPBI 08:52
PROVIDERS: PCP Internal Medicine; Referring Provider Internal Medicine; Visit Provider Internal Medicine
DX: R59.0 Localized enlarged lymph nodes (principal)
CPT/HCPCS: 76642; 77062; 77066; G0279

== ENCOUNTER 2023-05-11 14:00 | Outpatient (RCR) | payer OTHER, SELFPAY ==
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
--- NOTE | 2023-07-04 10:54 | HP.PTDCSUM ---
Discharge Summary D/C summary: It has been my pleasure to treat LAMAR LEMOS referred by JOSE ESTRADA, with the diagnosis of CLOSED 4-PART FRACTURE OF PROXIMAL HUMERUS WITH ROUTINE HEALING for a total of 23 visit(s). Discharge Date: Please see the following information for a summary of their discharge status. Subjective Subjective: Doing more every day ..carry laundry baskets Pain Right Shoulder: Pain Intensity (Out of 10): 0 Overall Improvement % Improvement: 50 Objective Objective/Function: Progressing with strength and function able to do more at hoem today made unbelievable progress with triceps firing standing triceps extension with band and supine tricep extnsion with 1# wt Goals Goal 1:: Patient to be I with HEP for shoulder Goal 2:: Patient to demonstrate 60 % improvement with less pain and improved function Goal 3:: Patient to improve PROM right shoulder flexion/abduction 140 degrees ,ER 70 degrees ,and IR 70 degrees (STG). Goal 4:: Patient to improve AROM shoulder flexion/abduction 110 degrees ,ER 70n degrees IR L3 to improve function Goal 5:: Patient to increase strength by 4-/5 RTC , bicep/triceps ,wrist flexion/extension and deltoid by 3+/5 to improve function with OH activities and ADLS Goal 6:: Patient to improve quick dash by 10 points to improve QOL and function Plan Plan: scheduled for tendon transfer to wrist this [facility] D/C Information d/c sentence: If there are questions or concerns regarding this patient's physical therapy, please feel free to call me at [phone]. Thank you for the referral of this patient. Sincerely, Tucker Romero, PT, Cert MDT, OCS Balance/Gait/Functional tests Balance/Special Test Scores Quick DASH Score: 77.5000 Improvement % Improvement: 50
== END 2023-05-11 19:00 | disposition home or self-care (01) ==
LOC: PT 14:00
PROVIDERS: PCP Internal Medicine
DX: S42.291D Other displaced fracture of upper end of right humerus, subsequent encounter for fracture with routine healing (principal)
CPT/HCPCS: 97110; 97140; 97162

== ENCOUNTER 2023-07-17 16:00 | Outpatient (RCR) | payer OTHER, SELFPAY ==
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
== END 2023-07-17 19:00 | disposition home or self-care (01) ==
LOC: OT 16:00
PROVIDERS: PCP Internal Medicine
DX: S14.3XXD Injury of brachial plexus, subsequent encounter (principal)
CPT/HCPCS: 97110; 97140; 97166

== ENCOUNTER → 2023-09-15 | Outpatient (CLI) | payer OTHER, SELFPAY ==
[2023-09-21 09:08] LABS: HPV APTIMA, High Risk Negative (Negative)
== END | disposition home or self-care (01) ==
LOC: LABSPEC 17:09
PROVIDERS: PCP Internal Medicine; Visit Provider Obstetrics & Gynecology
DX: Z12.4 Encounter for screening for malignant neoplasm of cervix (principal)
CPT/HCPCS: 87624; 88175; G0145

== ENCOUNTER 2024-02-07 16:30 | Outpatient (RCR) | payer OTHER, SELFPAY ==
--- NOTE | 2023-08-07 17:13 | OTREVAL_ITS ---
Re-Evaluation Intro: JOSE ESTRADA, It has been my pleasure to treat LAMAR LEMOS over the last 13 visits for Brachial plex inj. Please see the progress note below for an update on the occupational therapy plan of care! Subjective Subjective: SENT EMAIL ADDRESS IF WE HAVE ANY QUESTIONS: [email or web address] pt arrives 11weeks s/p from Tendon transfer pronator teres to ECRB, Tendon transfer of FDS of the 3rd to the EDC, Tendon transfer Palmaris Longus to EPL with A1 clara release of right MF. [ Objective Objective/Function: right ulnar nerve monofilament testing 2.83 right all digits LF is red line right wrist 55/ 35 right forearm sup/pron WNL and able to resist movement pt struggling with increase in MP and PIP flexion- limiting her ability to hold objects- following use of paraffin PROM therapist can get average PIP of IF 80* RF70 and LF 60* MCP tight and average of 60* FES unit pt able to gain more IF and thumb opposition with 2# pinch. 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 skilled OT services to increase pts functional ROM of composite fist to initiate more couples therapist and pinch strengthening. Plan Plan Plan: pt making small gains and would benefit from cont. therapy services - wean out of splint Goals Goals Tendon Goals: 100% adherence to protocol, Daily scar massage when approriate, Lead C Developer/Pinch strength at least 75% of unaffected hand, PIP Circumferences equal to unaffected hand, Full use of affected hand in daily activities including work and Improvement in sensation documented by [place] monofiliaments Goal Progress: Progressing Goal:100% adherence to protocol: Yes Goal:Daily scar massage when approriate: Yes Goal Progress: Goal Met Goal:ROM equal to unaffected hand: Yes Goal Progress: Progressing Goal:Lead C Developer/Pinch strength at least 75% of unaffected hand: Yes Goal Progress: Progressing Goal:PIP Circumferences equal to unaffected hand: Yes Goal Progress: Progressing Anticipated Interventions Re-Evaluation Ending Re-evaluation ending: Please do not hesitate to contact me at [phone] by phone or if you have questions or concerns regarding this new plan of care! Sincerely, Faviola Franco, OTR/L, CHT
--- NOTE | 2023-12-19 07:06 | OTREVAL_ITS ---
Re-Evaluation Intro: JOSE ESTRADA, It has been my pleasure to treat LAMAR LEMOS over the last 7 visits for Brachial plex inj. Please see the progress note below for an update on the occupational therapy plan of care! Subjective Subjective: pt arrives to session with compression glove on- states no changes with sensation at this time still struggling to form tight composite fist feels strength of UE is getting better. SENT EMAIL ADDRESS IF WE HAVE ANY QUESTIONS: [email or web address] Objective Objective/Function: right wrist 50/40 RD 20 UD N MCP PIP DIP IF 0/77 0/75 0/45 MF 0/85 0/40 0/25 RF 0/70 0/70 DIP +5 LF 0/40 0/65 0/35 thumb opposition to LF right electrical logger strength 5# pt demo with slight swan neck deformity with RF -LF use of oval 8 on DIP to decrease hyper ext. MF noted with tight ORL - pt has been ed. to stretch ORL - finger may need oval 8 to prevent PIP hyper ext- pt is strengthening UB using free weight that she can hold with her right electrical logger- ( biceps/shoulder and wrist) therapy continues to focus on composite fisting pt bracing to assist with MCP and PIP flexion stretching- using BTE to increase strength of grasp as well as wrist flex/ext FES to stimulate muscle return pt continues to make gains throughout her sessions. Pt would benefit continued skilled OT services 1-2x week for 6 months to cont. to increase pts functional strength of right grasp, FMS to increase pts IND use of right dominate hand. Pt demo understanding and agrees to POC. Plan Plan Visits in this POC: No Limit Med Lizzette Plan: use FES to increase digit flexion PROM place/hold for fist can use putty PB if she wants Goals Goals Patient Goals: Regain Mobility, Decrease Swelling/Stiffness, Improve Fine Motor Skills, Use Hand/Wrist/Arm Normally Again, Decrease Tingling/Numbness and Increase ROM Tendon Goals: 100% adherence to protocol, Daily scar massage when approriate, Advisor Advocate [employer] Founder/Pinch strength at least 75% of unaffected hand, PIP Circumferences equal to unaffected hand, Full use of affected hand in daily activities including work and Improvement in sensation documented by [place]Hussain monofiliaments Goal Progress: Progressing Goal:100% adherence to protocol: Yes Goal:Daily scar massage when approriate: Yes Goal Progress: Goal Met Goal:ROM equal to unaffected hand: Yes Goal Progress: Progressing Goal:Advisor Advocate Angel [employer] Founder/Pinch strength at least 75% of unaffected hand: Yes Goal Progress: Progressing Goal:PIP Circumferences equal to unaffected hand: Yes Goal Progress: Progressing Goal:Improvement in sensation documented by [place]ussain monofiliaments: Yes Goal Progress: Progressing Other Goal: bracing/orthosis use Goal Progress: Progressing Anticipated Interventions Anticipated Interventions Anticipated Interventions: A/AAROM/PROM, Strengthening, Scar Care, Triggerpoint Release, Sensory Retraining, Modalities, Orthoses, Joint Protection/Energy Conservation, Fine Motor Coord/Keagan, ADL Training, Education re Diagnosis and Home Program Re-Evaluation Ending Re-evaluation ending: Please do not hesitate to contact me at [phone] by phone or Fax: if you have questions or concerns regarding this new plan of care! Sincerely, Faviola Franco OTR/L, CHT
== END 2024-02-07 19:00 | disposition home or self-care (01) ==
LOC: OT 16:30
PROVIDERS: PCP Internal Medicine
DX: S14.3XXD Injury of brachial plexus, subsequent encounter (principal)
CPT/HCPCS: 97035; 97110; 97140; 97530

== ENCOUNTER 2024-05-29 11:00 | Outpatient (RCR) | payer OTHER, SELFPAY ==
--- NOTE | 2024-05-29 11:52 | HP.OTDCSUM_ITS ---
Discharge Summary D/C Summary: It has been my pleasure to treat LAMAR LEMOS under orders from JOSE ESTRADA, for the diagnosis of brachial Plex /tendon transfer for a total of 30 visit(s). Please see the following information for a summary of their discharge status. Overall Improvement % Improvement: 65 Objective Objective/Function: right wrist ROM 50/[address] 20* right UD 0* pt demo with unlar nerve mtor limitaions with LF adduction RF 2 away from composite fist LF .5 away form composite fist MF no PIP flexion pt demo 1space with attempts to make fist left full tight fist - right sas programmer remote strength now at 25# increase from 12# right latera pinch 8# right tripod pinch 7# pt demo with still ulnar motor deficits indicated with limited LF and RF adduction- ( pt states she does catch her LF frequently) (therapist advised bret tape all three LF /RF to MF. pt also using custom oval 8 to decrease RF PIP flexion and oval for DIP hyper ext. and oval 8 to prevent MF PIP from hyper ext. pt was advised to return anytime for adj. pt agreed. will cont. with PROM to prevent joint tightness. Plan Plan: d/c D/C Information Discharge Comments: pt is now out year from her tendon transfer procedure. Pt feels she gained some function but prior to her procedure she was able to make a fist and not straighten her fingers/wrist- pt is able to use thumb and IF for most tasks- as middle finger demo no active PIP flexion, RF and LF do assist in light grasp. pt getting stronger and demo understanding of orthosis use to prevent contractures as well as PROM to limit joint stiffness. pt agrees to D/C. d/c sentence: If there are questions or concerns regarding this patient's occupational therapy, please fell free to call me at [phone]. Thank you for the referral of this patient. Sincerely, Faviola Franco, OTR/L, CHT
== END 2024-05-29 19:00 | disposition home or self-care (01) ==
LOC: OT 11:00
PROVIDERS: PCP Internal Medicine
DX: S14.3XXD Injury of brachial plexus, subsequent encounter (principal)
CPT/HCPCS: 97035; 97110; 97140; 97530